=== PATIENT | male | born 1965 | race Hispanic/Latino ===

== ENCOUNTER 2024-11-20 18:09 | Emergency (ER) | payer OTHER ==
[2024-11-20] MEDS ORDERED: KETOROLAC 30 MG/ML INJ ONE (18:33)
[2024-11-20] MEDS ORDERED: AMOX/K CLAV 875 MG TAB ONE (18:40)
--- NOTE | 2024-11-20 18:40 | ER ---
Nurse's Notes [facility] [place] Name: Ezra Chun Age: 59 yrs Sex: Male : 1965 Arrival Date: 11/20/2024 Time: 18:09 Bed IW1 Private MD: Diagnosis: Dental caries, unspecified Presentation: 11/20 18:31 Chief complaint: Patient states: right side of jaw , top and bottom toothache, has an iw appt in January, pain has been going on for a month but worse today. Coronavirus screen: At this time, the client does not indicate any symptoms associated with coronavirus-19. Ebola Screen: No symptoms or risks identified at this time. Initial Sepsis Screen: Does the patient meet any 2 criteria? No. Patient's initial sepsis screen is negative. Does the patient have a suspected source of infection? No. Patient's initial sepsis screen is negative. Risk Assessment: Do you want to hurt yourself or someone else? Patient reports no desire to harm self or others. Onset of symptoms was November 20, 2024. 18:31 Method Of Arrival: Ambulatory iw 18:31 Acuity: BASIM 4 iw Triage Assessment: 18:31 General: Appears in no apparent distress. Behavior is calm, cooperative. iw 19:14 EENT: Reports. iw Historical: - Allergies: 18:33 No Known Allergies; iw - PMHx: 18:33 Hypertensive disorder; iw - Immunization history:: Adult Immunizations not up to date. - Infectious Disease History:: Denies. - Social history:: Smoking status: Patient denies any tobacco usage or history of. - Family history:: not pertinent. Screenin:05 [facility] ED Fall Risk Assessment (Adult) History of falling in the last 3 months, iw including since admission No falls in past 3 months (0 pts) Confusion or Disorientation No (0 pts) Intoxicated or Sedated No (0 pts) Impaired Gait No (0 pts) Mobility Assist Device Used No (0 pt) Altered Elimination No (0 pt) Score/Fall Risk Level 0 - 2 = Low Risk Oriented to surroundings, Maintained a safe environment. Abuse screen: Denies threats or abuse. Denies injuries from another. Nutritional screening: No deficits noted. Tuberculosis screening: No symptoms or risk factors identified. Assessment: 18:31 General: Appears in no apparent distress. Behavior is calm, cooperative. Pain: iw Complains of pain in right cheek and right jaw. Neuro: Level of Consciousness is awake, alert, obeys commands, Oriented to person, place, time, situation, Moves all extremities. Full function. Cardiovascular: Patient's skin is warm and dry. Respiratory: Respiratory effort is even, unlabored, Respiratory pattern is regular, symmetrical. EENT: Reports pain in right cheek and right jaw. Derm: Skin is intact, is healthy with good turgor. Musculoskeletal: Range of motion: intact in all extremities. Vital Signs: 18:31 BP 168 / 102; Pulse 108; Resp 16; Temp 98.1; Pulse Ox 95% on R/A; Weight 90.72 kg; iw Height 5 ft. 5 in. ; Pain 10/10; 18:31 Body Mass Index 33.28 (90.72 kg, 165.1 cm) iw 18:31 Pain Scale: Adult iw ED Course: 18:12 Patient arrived in ED. im 18:15 Juan Barboza MD is Attending Physician. rt 18:31 Patient has correct armband on for positive identification. Provided Education on: . iw 18:31 Arm band placed on. iw 18:33 Triage completed. iw 18:43 Ellen Dawkins RN is Primary Nurse. iw 19:05 No provider procedures requiring assistance completed. Patient did not have IV access iw during this emergency room visit. Administered Medications: 18:43 Drug: Amoxicillin-Clavulanate PO 875 mg PO once Route: PO; iw 19:03 Follow up: Response: No adverse reaction iw 18:43 Drug: Ketorolac IM 30 mg IM once Route: IM; Site: right deltoid; iw 19:02 Follow up: Response: No adverse reaction iw Medication: 18:31 VIS not applicable for this client. iw Outcome: 18:39 Discharge ordered by . rt 19:05 Discharged to home ambulatory, iw 19:05 Condition: good 19:05 Discharge instructions given to patient, Instructed on discharge instructions, follow up and referral plans. medication usage, Demonstrated understanding of instructions, follow-up care, medications, Prescriptions given X 1, 19:05 Patient left the ED. iw Signatures: Ellen Dawkins RN RN iw Juan Barboza MD MD rt Debbie Hall im Corrections: (The following items were deleted from the chart) 18:33 18:33 Home Meds: None; iw iw
--- NOTE | 2024-11-20 18:40 | EDPHYS ---
Physician Documentation [facility] Name: Ezra Chun Age: 59 yrs Sex: Male : 1965 Arrival Date: 11/20/2024 Time: 18:09 Bed IW1 Private MD: ED Physician Juan Barboza HPI: 11/20 20:03 This 59 yrs old Male presents to ER via Ambulatory with complaints of rt Toothache. 20:03 Patient presents to the ED with a right upper, right lower dental pain that has been rt present for several months. The patient has an appoint with the ID dentist in January. Has not taken thing for the pain. States that it worsened today. Denies difficulty swallowing, the guillermo complaints, symptoms are moderate in severity, aching nature, nonradiating, no other aggravating or alleviating factors.. Historical: - Allergies: 18:33 No Known Allergies; iw - PMHx: 18:33 Hypertensive disorder; iw - Immunization history:: Adult Immunizations not up to date. - Infectious Disease History:: Denies. - Social history:: Smoking status: Patient denies any tobacco usage or history of. - Family history:: not pertinent. ROS: 20:03 Constitutional: Negative for fever, chills, and weight loss, MS/Extremity: Negative for rt injury and deformity, Skin: Negative for injury, rash, and discoloration, Neuro: Negative for headache, weakness, numbness, tingling, and seizure, 20:03 ENT: Positive for dental pain, Negative for difficulty swallowing, Exam: 20:03 Constitutional: This is a well developed, well nourished patient who is awake, alert, rt and in no acute distress. Head/Face: Normocephalic, atraumatic. Neck: Trachea midline, no thyromegaly or masses palpated, and no cervical lymphadenopathy. Supple, full range of motion without nuchal rigidity, or vertebral point tenderness. No Meningismus. Skin: Warm, dry with normal turgor. Normal color with no rashes, no lesions, and no evidence of cellulitis. MS/ Extremity: Pulses equal, no cyanosis. Neurovascular intact. Full, normal range of motion. Neuro: Awake and alert, GCS 15, oriented to person, place, time, and situation. Cranial nerves II-XII grossly intact. Motor strength 5/5 in all extremities. Sensory grossly intact. Cerebellar exam normal. Normal gait. 20:03 ENT: Multiple dental caries noted, no oropharyngeal erythema, edema, no drainable abscess, uvula is midline. Vital Signs: 18:31 BP 168 / 102; Pulse 108; Resp 16; Temp 98.1; Pulse Ox 95% on R/A; Weight 90.72 kg; iw Height 5 ft. 5 in. ; Pain 10/10; 18:31 Body Mass Index 33.28 (90.72 kg, 165.1 cm) iw 18:31 Pain Scale: Adult iw MDM: 18:34 Medical Screening Exam initiated rt 20:03 Differential diagnosis: Dental caries, dental abscess. Data reviewed: vital signs, rt nurses notes. I considered the following discharge prescriptions or medication management in the emergency department Medications were administered in the Emergency Department. See MAR. Test considered but Not performed: CT: No signs of abscess, RPA, [employer], CT scan is not indicated. Care significantly affected by the following chronic conditions: Hypertension. Counseling: I had a detailed discussion with the patient and/or guardian regarding the historical points, exam findings, and any diagnostic results supporting the discharge/admit diagnosis, the need for outpatient follow up, to return to the emergency department if symptoms worsen or persist or if there are any questions or concerns that arise at home. Response to treatment: the patient's symptoms have mildly improved after treatment. Administered Medications: 18:43 Drug: Amoxicillin-Clavulanate PO 875 mg PO once Route: PO; iw 19:03 Follow up: Response: No adverse reaction iw 18:43 Drug: Ketorolac IM 30 mg IM once Route: IM; Site: right deltoid; iw 19:02 Follow up: Response: No adverse reaction iw Disposition Summary: 11/20/24 18:39 Discharge Ordered Notes: Location: Home rt Problem: an ongoing problem rt Symptoms: have improved rt Condition: Stable rt Diagnosis - Dental caries, unspecified rt Followup: rt - With: Private Physician - When: 2 - 3 days - Reason: Discharge Instructions: - Discharge Summary Sheet rt - Dental Caries, Adult rt Forms: - Medication Reconciliation Form rt - Antibiotic Education rt - Prescription Opioid Use rt - Patient Portal Instructions rt - Leadership Thank You Letter rt Prescriptions: - Augmentin 875-125 mg Oral Tablet - take 1 tablet ORAL route every 12 hours for 10 days; 20 tablet; Refills: 0, rt Product Selection Permitted Signatures: Ellen Dawkins RN RN iw Juan Barboza MD MD rt Corrections: (The following items were deleted from the chart) 18:33 18:33 Home Meds: None; iw iw
[2024-11-20 19:09] VITALS: BP 168/102; TEMP 98.1; O2SAT 95
== END 2024-11-20 19:05 | disposition home or self-care (01) ==
LOC: ER 18:09
DX: K02.9 Dental caries, unspecified (principal)